=== PATIENT | female | born 1935 | race Caucasian/White ===

== ENCOUNTER 2020-01-17 16:09 | Inpatient (IN) ==
[2020-01-17 17:00] LABS: Basophils % 0.2 % (0.0-0.8); Eosinophils # 0.1 10*3/uL (0.0-0.87); Eosinophils % 1.1 % (0.00-10.9); Hematocrit 39.7 VOL% (35.7-47.0); Hemoglobin 13.3 GM/DL (12.0-16.0); Immature Granulocytes % 0.7 %; Immature Granulocytes Absolute 0.07 #; Lymphocytes % 10.1 % (21.3-54.2); Mean Corpuscular HGB Conc 33.5 GM/DL (32-36); Mean Corpuscular Volume 95.7 FL (87-102); Monocytes % 8.5 % (1.7-12.7); Neutrophils % 79.4 % (38.7-73.9); Platelet Count 230 T/CUMM (130-400); Red Blood Count 4.15 MC/CUMM (3.8-5.5); Red Cell Distribution Width 13.7 % (9.3-17.3)
[2020-01-17 17:15] LABS: INR 1.9; PT Patient Result 19.3 SECS (9.8-11.9)
[2020-01-17 17:26] LABS: Albumin 3.4 G/DL (3.4-5.0); Bilirubin,Total 0.9 MG/DL (0.2-1.0); Calcium 8.5 MG/DL (8.5-10.1); Osmolality,Calculated 280.5 MOS/KG (273-304); Total Protein 7.2 G/DL (6.4-8.3)
[2020-01-17 18:01] LABS: Bilirubin,Urine Negative (Negative); Blood, Urine Moderate mg/dL (Negative); Glucose,Urine (UA) Negative (Negative); Hyaline Casts,Urine 3 /LPF (0-3); Ketones,Urine Negative (Negative); Nitrite,Urine Negative (Negative); Protein,Urine Negative; RBC,Urine 1 /HPF (0-4); Urine Appearance CLEAR (Clear); Urine Color Straw (Yellow); Urine Specific Gravity 1.005 (1.001-1.035); Urine Urobilinogen < 2.0 EU/DL (0.2-1.0); WBC,Urine 1 /HPF (0-6)
[2020-01-17] MEDS ORDERED: DOCUSATE SODIUM 100 MG CAPSULE PO PRN (18:07)
[2020-01-17] MEDS ORDERED: MORPHINE 4 MG/1 ML VIAL IV PRN (18:07)
[2020-01-17] MEDS ORDERED: hydrALAZINE 20 MG/1 ML VIAL IV PRN (18:07)
[2020-01-17] MEDS ORDERED: ONDANSETRON 4 MG/2 ML VIAL IV PRN (18:07)
[2020-01-17] MEDS ORDERED: LABETALOL 20 MG/4 ML SYRINGE IV PRN (18:07)
[2020-01-17] MEDS ORDERED: ALBUTEROL/IPRATROPIUM 3 ML NEB RESP TX PRN (18:07)
[2020-01-17] MEDS ORDERED: LACTULOSE 20 GM/30 ML UDCUP PO PRN (18:07)
[2020-01-17 20:04] LABS: Barbiturates Screen,Urine Negative (Negative); Benzodiazepines Screen,Urine Negative (Negative); Cannabinoid Screen,Urine Negative (Negative); Opiate Screen,Urine Negative (Negative); Phencyclidine Screen,Urine Negative (Negative)
[2020-01-17] MEDS: SODIUM CHLORIDE 0.9% 1,000 ML IV SCH (22:53)
[2020-01-18 05:31] LABS: Basophils % 0.2 % (0.0-0.8); Eosinophils # 0.2 10*3/uL (0.0-0.87); Eosinophils % 1.7 % (0.00-10.9); Hematocrit 39.8 VOL% (35.7-47.0); Hemoglobin 13.1 GM/DL (12.0-16.0); Immature Granulocytes % 0.3 %; Immature Granulocytes Absolute 0.03 #; Lymphocytes # 1.7 10*3/uL (1.4-4.0); Lymphocytes % 19.3 % (21.3-54.2); Mean Corpuscular HGB Conc 32.9 GM/DL (32-36); Mean Corpuscular Volume 95.9 FL (87-102); Mean Platelet Volume 10.5 FL (9.6-12.0); Neutrophils % 68.5 % (38.7-73.9); Platelet Count 219 T/CUMM (130-400); Red Blood Count 4.15 MC/CUMM (3.8-5.5); Red Cell Distribution Width 13.6 % (9.3-17.3); White Blood Count 8.8 T/CUMM (4-12)
[2020-01-18 05:58] LABS: Bilirubin,Total 0.6 MG/DL (0.2-1.0); Calcium 8.5 MG/DL (8.5-10.1); Osmolality,Calculated 283.3 MOS/KG (273-304); Thyroid Stimulating Hormone 1.66 uIU/ml (0.358-3.74); Total Protein 7.1 G/DL (6.4-8.3)
[2020-01-18 08:53] LABS: Risk Ratio 2.91
[2020-01-18] MEDS: ASPIRIN 325 MG TABLET PO SCH (09:43)
[2020-01-18] MEDS: ENOXAPARIN 40 MG/0.4 ML SYRINGE SUBCUT SCH (09:43)
[2020-01-18 09:51] LABS: INR 1.7; PT Patient Result 17.9 SECS (9.8-11.9)
[2020-01-18 10:33] LABS: Folate 18.7 NG/ML (5.4-24.0)
[2020-01-18] MEDS ORDERED: WARFARIN 5 MG TABLET PO ONE (18:00)
[2020-01-18] MEDS: atenoloL 50 MG TABLET PO SCH (19:37)
[2020-01-18] MEDS ORDERED: ATORVASTATIN 40 MG TABLET PO SCH (21:00)
[2020-01-18] MEDS: TORSEMIDE 20 MG TABLET PO SCH (23:37)
[2020-01-19] MEDS: ACETAMINOPHEN 325 MG TABLET PO PRN ×2 (03:08→09:24)
[2020-01-19 06:12] LABS: Basophils % 0.3 % (0.0-0.8); Eosinophils % 0.2 % (0.00-10.9); Hematocrit 37.1 VOL% (35.7-47.0); Hemoglobin 12.4 GM/DL (12.0-16.0); Immature Granulocytes % 0.5 %; Immature Granulocytes Absolute 0.06 #; Lymphocytes # 1.4 10*3/uL (1.4-4.0); Lymphocytes % 11.8 % (21.3-54.2); Mean Corpuscular HGB Conc 33.4 GM/DL (32-36); Mean Corpuscular Volume 94.9 FL (87-102); Mean Platelet Volume 10.6 FL (9.6-12.0); Monocytes % 9.8 % (1.7-12.7); Neutrophils % 77.4 % (38.7-73.9); Platelet Count 221 T/CUMM (130-400); Red Blood Count 3.91 MC/CUMM (3.8-5.5); Red Cell Distribution Width 13.8 % (9.3-17.3)
[2020-01-19 06:39] LABS: Albumin 2.9 G/DL (3.4-5.0); Bilirubin,Total 1.3 MG/DL (0.2-1.0); Calcium 8.7 MG/DL (8.5-10.1); Osmolality,Calculated 279.5 MOS/KG (273-304)
[2020-01-19] MEDS ORDERED: POTASSIUM CHLORIDE 20 MEQ TABLET PO PRN (07:39)
[2020-01-19] MEDS ORDERED: POTASSIUM CHLORIDE RIDER 10 MEQ in PREMIX 1 EACH IV PRN (07:39)
[2020-01-19 08:32] LABS: INR 1.8; PT Patient Result 18.9 SECS (9.8-11.9)
[2020-01-19] MEDS: TORSEMIDE 20 MG TABLET PO SCH (09:24)
[2020-01-19] MEDS: ASPIRIN 325 MG TABLET PO SCH (09:25)
[2020-01-19] MEDS: atenoloL 50 MG TABLET PO SCH (09:25)
[2020-01-19] MEDS: ENOXAPARIN 40 MG/0.4 ML SYRINGE SUBCUT SCH (09:26)
[2020-01-19] MEDS: SODIUM CHLORIDE 0.9% 1,000 ML IV SCH ×3 (09:28→14:35)
[2020-01-19 12:18] VITALS: BP 131/86
[2020-01-19] MEDS ORDERED: WARFARIN 5 MG TABLET PO SCH (18:00)
[2020-01-23] MEDS ORDERED: WARFARIN 5 MG TABLET PO SCH (18:00)
== END 2020-01-19 15:31 | DRG 65 ==
LOC: EDUNIT# → EDBD → N.ED 16:09 → N.EDINP 18:07
PROVIDERS: ADMIT Internal Medicine; ATTEND Internal Medicine

== ENCOUNTER 2021-10-05 22:57 | Inpatient (IN) ==
[2021-10-05] MEDS ORDERED: SODIUM CHLORIDE 0.9% 500 ML IV STA (23:20)
[2021-10-06 00:41] LABS: Hyaline Casts,Urine 96 /LPF (0-3); Mucus,Urine Occasional /LPF (Occasional); RBC,Urine 4 /HPF (0-4)
[2021-10-06 00:42] LABS: Urine Appearance Clear (Clear); Urine Color Yellow (Yellow); Urine pH 5.5 (4.5-8.0)
[2021-10-06 00:42] LABS: Basophils % 0.1 % (0.0-0.8); Eosinophils % 0.3 % (0.00-10.9); Hematocrit 41.2 VOL% (35.7-47.0); Hemoglobin 13.3 GM/DL (12.0-16.0); Immature Granulocytes % 0.7 %; Lymphocytes # 1.3 10*3/uL (1.4-4.0); Lymphocytes % 9.1 % (21.3-54.2); Mean Corpuscular HGB Conc 32.3 GM/DL (32-36); Mean Corpuscular Volume 95.6 FL (87-102); Mean Platelet Volume 10.6 FL (9.6-12.0); Monocytes % 6.8 % (1.7-12.7); Platelet Count 240 T/CUMM (130-400); Red Blood Count 4.31 MC/CUMM (3.8-5.5); Red Cell Distribution Width 14.8 % (9.3-17.3); White Blood Count 14.6 T/CUMM (4-12)
[2021-10-06 00:43] LABS: Bilirubin,Urine Negative (Negative); Blood, Urine Trace mg/dL (Negative); Glucose,Urine (UA) Negative (Negative); Ketones,Urine Negative (Negative); Nitrite,Urine Negative (Negative); Protein,Urine Negative (Negative); Urine Urobilinogen 0.2 eU/dL (<2.0)
[2021-10-06 00:50] LABS: Albumin 3.4 G/DL (3.4-5.0); Bilirubin,Total 0.5 MG/DL (0.20-1.00); Potassium 4.2 MMOL/L (3.5-5.1); Total Protein 7.5 G/DL (6.4-8.2)
[2021-10-06] MEDS ORDERED: cefTRIAXone 1,000 MG in SODIUM CHLORIDE 0.9% 100 ML IV STA (01:18)
[2021-10-06] MEDS ORDERED: DEXTROSE 50% 25 GM/50 ML VIAL IV PRN (02:32)
[2021-10-06] MEDS ORDERED: DEXTROSE 10% 250 ML BAG IV PRN (02:32)
[2021-10-06] MEDS ORDERED: GLUCAGON 1 MG VIAL IM PRN (02:32)
[2021-10-06] MEDS: AZITHROMYCIN INJ 500 MG in SODIUM CHLORIDE 0.9% 250 ML IV SCH (02:53)
[2021-10-06 03:05] LABS: INR 1.9; PT Patient Result 20.3 SECS (10.5-12.0)
[2021-10-06] MEDS ORDERED: ALBUTEROL/IPRATROPIUM 3 ML NEB RESP TX PRN (03:46)
[2021-10-06] MEDS: INSULIN REGULAR 100 UNIT/ML SUBCUT SCH ×4 (07:54→21:53)
[2021-10-06 08:01] LABS: INR 1.9; PT Patient Result 20.3 SECS (10.5-12.0)
[2021-10-06 08:10] LABS: Albumin 3.2 G/DL (3.4-5.0); Bilirubin,Total 0.6 MG/DL (0.20-1.00); Calcium 8.6 MG/DL (8.5-10.1); Osmolality,Calculated 277.7 MOS/KG (273-304); Potassium 4.1 MMOL/L (3.5-5.1); Total Protein 7.5 G/DL (6.4-8.2)
[2021-10-06 08:23] LABS: Basophils % 0.1 % (0.0-0.8); Eosinophils # 0.1 10*3/uL (0.0-0.87); Eosinophils % 0.7 % (0.00-10.9); Hematocrit 37.1 VOL% (35.7-47.0); Hemoglobin 12.3 GM/DL (12.0-16.0); Immature Granulocytes % 0.6 %; Immature Granulocytes Absolute 0.08 #; Lymphocytes # 1.6 10*3/uL (1.4-4.0); Lymphocytes % 11.7 % (21.3-54.2); Mean Corpuscular HGB Conc 33.2 GM/DL (32-36); Mean Corpuscular Volume 95.4 FL (87-102); Mean Platelet Volume 11.3 FL (9.6-12.0); Monocytes # 1.1 10*3/uL (0.11-0.8); Monocytes % 7.9 % (1.7-12.7); Platelet Count 233 T/CUMM (130-400); Red Blood Count 3.89 MC/CUMM (3.8-5.5); White Blood Count 13.5 T/CUMM (4-12)
[2021-10-06] MEDS: PANTOPRAZOLE 40 MG TABLET PO SCH (08:45)
[2021-10-06] MEDS ORDERED: FLUTICASONE 50 MCG NASAL SPRAY 16 GM BOTTLE BOTH NARES PRN (10:03)
[2021-10-06] MEDS ORDERED: CETIRIZINE 10 MG TABLET PO PRN (10:13)
[2021-10-06] MEDS: ASPIRIN EC 325 MG TABLET PO SCH (10:38)
[2021-10-06] MEDS: WARFARIN 5 MG TABLET PO SCH (10:38)
[2021-10-06] MEDS: atenoloL 25 MG TABLET PO SCH ×2 (10:38→20:32)
[2021-10-06] MEDS: DIGOXIN 0.125 MG TABLET PO SCH (10:40)
[2021-10-06] MEDS ORDERED: FUROSEMIDE 40 MG/4 ML VIAL IV ONE (16:31)
[2021-10-06] MEDS: SIMVASTATIN 10 MG TABLET PO SCH (20:32)
[2021-10-06] MEDS: ZINC OXIDE PASTE 113 GM TUBE TOP SCH (20:40)
[2021-10-06] MEDS: ACETAMINOPHEN 325 MG TABLET PO PRN (22:00)
[2021-10-07 05:25] LABS: Basophils % 0.1 % (0.0-0.8); Eosinophils # 0.1 10*3/uL (0.0-0.87); Eosinophils % 0.7 % (0.00-10.9); Hematocrit 35.7 VOL% (35.7-47.0); Hemoglobin 11.5 GM/DL (12.0-16.0); Immature Granulocytes % 0.4 %; Immature Granulocytes Absolute 0.06 #; Lymphocytes # 1.7 10*3/uL (1.4-4.0); Lymphocytes % 12.2 % (21.3-54.2); Mean Corpuscular HGB Conc 32.2 GM/DL (32-36); Mean Corpuscular Volume 95.7 FL (87-102); Mean Platelet Volume 11.5 FL (9.6-12.0); Monocytes # 1.5 10*3/uL (0.11-0.8); Monocytes % 11.1 % (1.7-12.7); Neutrophils % 75.5 % (38.7-73.9); Platelet Count 161 T/CUMM (130-400); Red Blood Count 3.73 MC/CUMM (3.8-5.5); Red Cell Distribution Width 14.8 % (9.3-17.3); White Blood Count 13.6 T/CUMM (4-12)
[2021-10-07 05:38] LABS: Calcium 8.5 MG/DL (8.5-10.1)
[2021-10-07 08:09] LABS: INR 1.9; PT Patient Result 20.3 SECS (10.5-12.0)
[2021-10-07] MEDS: INSULIN REGULAR 100 UNIT/ML SUBCUT SCH ×5 (08:44→21:45)
[2021-10-07] MEDS: ACETAMINOPHEN 325 MG TABLET PO PRN ×2 (09:27→21:46)
[2021-10-07] MEDS: ASPIRIN EC 325 MG TABLET PO SCH (09:28)
[2021-10-07] MEDS: PANTOPRAZOLE 40 MG TABLET PO SCH (09:28)
[2021-10-07] MEDS: atenoloL 25 MG TABLET PO SCH ×2 (09:28→21:42)
[2021-10-07] MEDS: DIGOXIN 0.125 MG TABLET PO SCH (09:28)
[2021-10-07] MEDS: cefTRIAXone 1,000 MG in SODIUM CHLORIDE 0.9% 100 ML IV SCH (09:28)
[2021-10-07] MEDS: WARFARIN 2.5 MG TABLET PO SCH (09:32)
[2021-10-07] MEDS: ZINC OXIDE PASTE 113 GM TUBE TOP SCH ×2 (09:33→21:43)
[2021-10-07] MEDS ORDERED: FUROSEMIDE 40 MG/4 ML VIAL IV ONE (11:00)
[2021-10-07] MEDS: AZITHROMYCIN INJ 500 MG in SODIUM CHLORIDE 0.9% 250 ML IV SCH (11:01)
[2021-10-07] MEDS: SIMVASTATIN 10 MG TABLET PO SCH (21:42)
[2021-10-08 05:04] LABS: Basophils % 0.1 % (0.0-0.8); Eosinophils # 0.2 10*3/uL (0.0-0.87); Eosinophils % 1.2 % (0.00-10.9); Hematocrit 35.3 VOL% (35.7-47.0); Hemoglobin 11.4 GM/DL (12.0-16.0); Immature Granulocytes % 0.5 %; Immature Granulocytes Absolute 0.08 #; Lymphocytes # 1.2 10*3/uL (1.4-4.0); Lymphocytes % 8.2 % (21.3-54.2); Mean Corpuscular HGB Conc 32.3 GM/DL (32-36); Mean Corpuscular Volume 95.7 FL (87-102); Mean Platelet Volume 11.2 FL (9.6-12.0); Monocytes # 1.3 10*3/uL (0.11-0.8); Monocytes % 8.4 % (1.7-12.7); Neutrophils % 81.6 % (38.7-73.9); Platelet Count 177 T/CUMM (130-400); Red Blood Count 3.69 MC/CUMM (3.8-5.5); Red Cell Distribution Width 14.6 % (9.3-17.3)
[2021-10-08 05:14] LABS: INR 2.1; PT Patient Result 21.9 SECS (10.5-12.0)
[2021-10-08 05:24] LABS: Calcium 8.4 MG/DL (8.5-10.1); Osmolality,Calculated 276.7 MOS/KG (273-304); Potassium 3.7 MMOL/L (3.5-5.1)
[2021-10-08] MEDS: INSULIN REGULAR 100 UNIT/ML SUBCUT SCH (07:49)
[2021-10-08] MEDS: ASPIRIN EC 325 MG TABLET PO SCH (08:56)
[2021-10-08] MEDS: WARFARIN 5 MG TABLET PO SCH (08:57)
[2021-10-08] MEDS: PANTOPRAZOLE 40 MG TABLET PO SCH (08:57)
[2021-10-08] MEDS: AZITHROMYCIN 250 MG TABLET PO SCH (08:57)
[2021-10-08] MEDS: TORSEMIDE 20 MG TABLET PO SCH ×2 (08:57→15:59)
[2021-10-08] MEDS: DIGOXIN 0.125 MG TABLET PO SCH (08:57)
[2021-10-08] MEDS: atenoloL 25 MG TABLET PO SCH ×2 (08:57→21:44)
[2021-10-08] MEDS: cefTRIAXone 1,000 MG in SODIUM CHLORIDE 0.9% 100 ML IV SCH (08:58)
[2021-10-08] MEDS: ALBUTEROL/IPRATROPIUM 3 ML NEB RESP TX SCH ×4 (10:00→20:45)
[2021-10-08] MEDS: ZINC OXIDE PASTE 113 GM TUBE TOP SCH ×2 (10:15→22:41)
[2021-10-08] MEDS: SIMVASTATIN 10 MG TABLET PO SCH (21:44)
[2021-10-09] MEDS: ALBUTEROL/IPRATROPIUM 3 ML NEB RESP TX SCH ×2 (01:06→04:00)
[2021-10-09 06:12] LABS: Basophils % 0.2 % (0.0-0.8); Eosinophils # 0.2 10*3/uL (0.0-0.87); Eosinophils % 1.6 % (0.00-10.9); Hematocrit 36.4 VOL% (35.7-47.0); Hemoglobin 11.7 GM/DL (12.0-16.0); Immature Granulocytes % 0.5 %; Immature Granulocytes Absolute 0.05 #; Lymphocytes # 1.5 10*3/uL (1.4-4.0); Lymphocytes % 13.5 % (21.3-54.2); Mean Corpuscular HGB Conc 32.1 GM/DL (32-36); Mean Platelet Volume 10.8 FL (9.6-12.0); Monocytes # 0.8 10*3/uL (0.11-0.8); Monocytes % 6.8 % (1.7-12.7); Neutrophils % 77.4 % (38.7-73.9); Platelet Count 215 T/CUMM (130-400); Red Blood Count 3.83 MC/CUMM (3.8-5.5); Red Cell Distribution Width 14.6 % (9.3-17.3); White Blood Count 11.1 T/CUMM (4-12)
[2021-10-09 06:21] LABS: INR 2.2; PT Patient Result 23.3 SECS (10.5-12.0)
[2021-10-09 06:35] LABS: Calcium 8.4 MG/DL (8.5-10.1)
[2021-10-09] MEDS: ASPIRIN EC 325 MG TABLET PO SCH (09:15)
[2021-10-09] MEDS: AZITHROMYCIN 250 MG TABLET PO SCH (09:16)
[2021-10-09] MEDS: atenoloL 25 MG TABLET PO SCH (09:16)
[2021-10-09] MEDS: TORSEMIDE 20 MG TABLET PO SCH (09:16)
[2021-10-09] MEDS: WARFARIN 2.5 MG TABLET PO SCH (09:16)
[2021-10-09] MEDS: DIGOXIN 0.125 MG TABLET PO SCH (09:17)
[2021-10-09] MEDS: ZINC OXIDE PASTE 113 GM TUBE TOP SCH (09:17)
[2021-10-09] MEDS: PANTOPRAZOLE 40 MG TABLET PO SCH (09:17)
[2021-10-09 12:26] VITALS: BP 121/53
[2021-10-09] MEDS: cefTRIAXone 1,000 MG in SODIUM CHLORIDE 0.9% 100 ML IV SCH (12:40)
== END 2021-10-09 13:36 | disposition home health service (06) | DRG 193 ==
LOC: EDUNIT# → EDBD → N.ED 22:57 → N.EDINP 10-06 02:32 → N.5E 10-06 02:57
PROVIDERS: ADMIT Internal Medicine; ATTEND Internal Medicine

== ENCOUNTER 2021-12-18 19:47 | Observation (INO) ==
[2021-12-18 20:25] LABS: Basophils % 0.2 % (0.0-0.8); Eosinophils # 0.2 10*3/uL (0.0-0.87); Eosinophils % 1.8 % (0.00-10.9); Hematocrit 39.5 VOL% (35.7-47.0); Hemoglobin 12.7 GM/DL (12.0-16.0); Immature Granulocytes % 0.5 %; Immature Granulocytes Absolute 0.07 #; Lymphocytes # 2.2 10*3/uL (1.4-4.0); Lymphocytes % 17.5 % (21.3-54.2); Mean Corpuscular HGB Conc 32.2 GM/DL (32-36); Mean Corpuscular Volume 95.2 FL (87-102); Mean Platelet Volume 10.2 FL (9.6-12.0); Monocytes # 0.9 10*3/uL (0.11-0.8); Monocytes % 6.7 % (1.7-12.7); Neutrophils % 73.3 % (38.7-73.9); Platelet Count 276 T/CUMM (130-400); Red Blood Count 4.15 MC/CUMM (3.8-5.5); Red Cell Distribution Width 14.8 % (9.3-17.3); White Blood Count 12.7 T/CUMM (4-12)
[2021-12-18 20:44] LABS: Amorphous Crystals,Urine Occasional /HPF (Few); Bacteria,Urine Occasional /HPF (Few); RBC,Urine 1 /HPF (0-4); Squamous Epithelial Cell,Urine Occasional /HPF (0-10)
[2021-12-18 20:44] LABS: Albumin 3.3 G/DL (3.4-5.0); Bilirubin,Total 0.4 MG/DL (0.20-1.00); Calcium 8.8 MG/DL (8.5-10.1); Osmolality,Calculated 268.4 MOS/KG (273-304); Potassium 4.3 MMOL/L (3.5-5.1); Total Protein 7.5 G/DL (6.4-8.2)
[2021-12-18 20:45] LABS: Bilirubin,Urine Negative (Negative); Blood, Urine Large mg/dL (Negative); Glucose,Urine (UA) Negative (Negative); Ketones,Urine Negative (Negative); Nitrite,Urine Negative (Negative); Protein,Urine 30 mg/dL (Negative); Urine Appearance Clear (Clear); Urine Color Yellow (Yellow); Urine Urobilinogen 0.2 eU/dL (<2.0); Urine pH 6.5 (4.5-8.0)
[2021-12-18 20:45] LABS: PT Patient Result 20.8 SECS (10.1-12.1)
[2021-12-18] MEDS ORDERED: cefTRIAXone 1,000 MG in SODIUM CHLORIDE 0.9% 100 ML IV STA (20:57)
[2021-12-18] MEDS ORDERED: hydrALAZINE 20 MG/1 ML VIAL IV PRN (22:06)
[2021-12-18] MEDS ORDERED: ACETAMINOPHEN 325 MG TABLET PO PRN (22:06)
[2021-12-18] MEDS ORDERED: DEXTROSE 10% 250 ML BAG IV PRN (22:06)
[2021-12-18] MEDS ORDERED: ONDANSETRON 4 MG/2 ML VIAL IV PRN (22:06)
[2021-12-18] MEDS ORDERED: GLUCAGON 1 MG VIAL IM PRN (22:06)
[2021-12-18] MEDS ORDERED: ZINC OXIDE PASTE 113 GM TUBE TOP PRN (22:11)
[2021-12-18] MEDS ORDERED: traMADol 50 MG TABLET PO PRN (22:11)
[2021-12-18] MEDS ORDERED: FLUTICASONE 50 MCG NASAL SPRAY 16 GM BOTTLE BOTH NARES PRN (22:11)
[2021-12-18] MEDS ORDERED: CETIRIZINE 10 MG TABLET PO PRN (22:37)
[2021-12-19 06:26] LABS: INR 1.8; PT Patient Result 19.4 SECS (10.1-12.1)
[2021-12-19 06:33] LABS: Calcium 8.9 MG/DL (8.5-10.1); Osmolality,Calculated 282.3 MOS/KG (273-304); Potassium 3.8 MMOL/L (3.5-5.1)
[2021-12-19 07:08] LABS: Basophils % 0.2 % (0.0-0.8); Eosinophils # 0.2 10*3/uL (0.0-0.87); Eosinophils % 2.6 % (0.00-10.9); Hematocrit 37.9 VOL% (35.7-47.0); Hemoglobin 12.3 GM/DL (12.0-16.0); Immature Granulocytes % 0.3 %; Immature Granulocytes Absolute 0.03 #; Lymphocytes # 2.1 10*3/uL (1.4-4.0); Lymphocytes % 23.4 % (21.3-54.2); Mean Corpuscular HGB Conc 32.5 GM/DL (32-36); Mean Corpuscular Volume 95.5 FL (87-102); Monocytes # 0.7 10*3/uL (0.11-0.8); Monocytes % 7.7 % (1.7-12.7); Neutrophils % 65.8 % (38.7-73.9); Platelet Count 222 T/CUMM (130-400); Red Blood Count 3.97 MC/CUMM (3.8-5.5); Red Cell Distribution Width 14.7 % (9.3-17.3); White Blood Count 8.9 T/CUMM (4-12)
[2021-12-19] MEDS: TORSEMIDE 20 MG TABLET PO SCH ×2 (09:17→21:07)
[2021-12-19] MEDS: PANTOPRAZOLE 40 MG TABLET PO SCH (09:17)
[2021-12-19] MEDS: DIGOXIN 0.125 MG TABLET PO SCH (09:17)
[2021-12-19] MEDS: ASPIRIN EC 325 MG TABLET PO SCH (09:17)
[2021-12-19] MEDS: BISACODYL 5 MG TABLET PO SCH (09:18)
[2021-12-19] MEDS ORDERED: WARFARIN 5 MG TABLET PO SCH (18:00)
[2021-12-19] MEDS ORDERED: cefTRIAXone 1,000 MG in SODIUM CHLORIDE 0.9% 100 ML IV SCH (21:00)
[2021-12-19] MEDS ORDERED: SIMVASTATIN 10 MG TABLET PO SCH (21:00)
[2021-12-19] MEDS: DESITIN 4OZ/NYSTATIN 15 GRAM MIXTURE PASTE TOP SCH (21:13)
[2021-12-19] MEDS: atenoloL 50 MG TABLET PO SCH (23:05)
[2021-12-20 06:09] LABS: Basophils % 0.2 % (0.0-0.8); Eosinophils # 0.2 10*3/uL (0.0-0.87); Eosinophils % 2.3 % (0.00-10.9); Hematocrit 40.5 VOL% (35.7-47.0); Hemoglobin 12.7 GM/DL (12.0-16.0); Immature Granulocytes % 0.3 %; Immature Granulocytes Absolute 0.03 #; Lymphocytes # 1.8 10*3/uL (1.4-4.0); Mean Corpuscular HGB Conc 31.4 GM/DL (32-36); Mean Corpuscular Volume 96.9 FL (87-102); Monocytes # 0.8 10*3/uL (0.11-0.8); Monocytes % 8.3 % (1.7-12.7); Neutrophils % 69.9 % (38.7-73.9); Platelet Count 183 T/CUMM (130-400); Red Blood Count 4.18 MC/CUMM (3.8-5.5); Red Cell Distribution Width 14.9 % (9.3-17.3); White Blood Count 9.3 T/CUMM (4-12)
[2021-12-20 06:51] LABS: Calcium 8.5 MG/DL (8.5-10.1); Osmolality,Calculated 279.4 MOS/KG (273-304); Potassium 3.6 MMOL/L (3.5-5.1)
[2021-12-20 07:21] LABS: INR 1.8; PT Patient Result 19.1 SECS (10.1-12.1)
[2021-12-20 08:03] LABS: Platelet Estimate Normal
[2021-12-20] MEDS: ASPIRIN EC 325 MG TABLET PO SCH (08:56)
[2021-12-20] MEDS: DIGOXIN 0.125 MG TABLET PO SCH (08:56)
[2021-12-20] MEDS: atenoloL 50 MG TABLET PO SCH (08:56)
[2021-12-20] MEDS: PANTOPRAZOLE 40 MG TABLET PO SCH (08:56)
[2021-12-20] MEDS: TORSEMIDE 20 MG TABLET PO SCH (08:57)
[2021-12-20] MEDS: BISACODYL 5 MG TABLET PO SCH (08:57)
[2021-12-20] MEDS: DESITIN 4OZ/NYSTATIN 15 GRAM MIXTURE PASTE TOP SCH (08:58)
[2021-12-20 09:42] LABS: Partial Thromboplastin Time 34.8 SECS (23.7-32.9)
[2021-12-20 09:46] VITALS: BP 151/92
[2021-12-20] MEDS ORDERED: WARFARIN 2.5 MG TABLET PO SCH (18:00)
== END 2021-12-20 12:43 | disposition home health service (06) ==
LOC: EDBD → EDUNIT# → N.EDINP 19:47 → N.ED 19:47 → SUATTDRO 22:06 → N.5E 23:33
PROVIDERS: ADMIT Hospitalist; ATTEND Internal Medicine

== ENCOUNTER 2022-01-11 15:47 | Inpatient (IN) ==
[2022-01-11] MEDS ORDERED: SODIUM CHLORIDE 0.9% 1,000 ML IV STA (16:18)
[2022-01-11 16:43] LABS: Basophils % 0.3 % (0.0-0.8); Eosinophils # 0.2 10*3/uL (0.0-0.87); Eosinophils % 2.3 % (0.00-10.9); Hemoglobin 13.2 GM/DL (12.0-16.0); Immature Granulocytes % 0.6 %; Immature Granulocytes Absolute 0.06 #; Lymphocytes # 2.1 10*3/uL (1.4-4.0); Lymphocytes % 19.5 % (21.3-54.2); Mean Corpuscular HGB Conc 32.2 GM/DL (32-36); Mean Platelet Volume 10.1 FL (9.6-12.0); Monocytes # 0.9 10*3/uL (0.11-0.8); Monocytes % 8.4 % (1.7-12.7); Neutrophils % 68.9 % (38.7-73.9); Platelet Count 238 T/CUMM (130-400); Red Blood Count 4.27 MC/CUMM (3.8-5.5); Red Cell Distribution Width 14.6 % (9.3-17.3); White Blood Count 10.7 T/CUMM (4-12)
[2022-01-11 17:05] LABS: Albumin 3.6 G/DL (3.4-5.0); Bilirubin,Total 0.4 MG/DL (0.20-1.00); Calcium 9.1 MG/DL (8.5-10.1); Osmolality,Calculated 274.8 MOS/KG (273-304); Potassium 4.1 MMOL/L (3.5-5.1); Total Protein 7.5 G/DL (6.4-8.2)
[2022-01-11 17:20] LABS: RBC,Urine 15-20 /HPF (0-4); Squamous Epithelial Cell,Urine Occasional /HPF (0-10)
[2022-01-11 17:24] LABS: Bilirubin,Urine Negative (Negative); Blood, Urine Large mg/dL (Negative); Glucose,Urine (UA) Negative (Negative); Ketones,Urine Negative (Negative); Nitrite,Urine Negative (Negative); Protein,Urine Negative (Negative); Urine Appearance Clear (Clear); Urine Color Yellow (Yellow); Urine Urobilinogen 0.2 eU/dL (<2.0); Urine pH 6.5 (4.5-8.0)
[2022-01-11] MEDS ORDERED: cefTRIAXone 1,000 MG in SODIUM CHLORIDE 0.9% 100 ML IV STA (18:30)
[2022-01-11] MEDS ORDERED: traMADol 50 MG TABLET PO PRN (20:28)
[2022-01-11] MEDS ORDERED: FLUTICASONE 50 MCG NASAL SPRAY 16 GM BOTTLE BOTH NARES PRN (20:28)
[2022-01-11] MEDS ORDERED: ZINC OXIDE PASTE 113 GM TUBE TOP PRN (20:28)
[2022-01-11] MEDS ORDERED: ONDANSETRON 4 MG/2 ML VIAL IV PRN (20:31)
[2022-01-11] MEDS ORDERED: GLUCAGON 1 MG VIAL IM PRN (20:31)
[2022-01-11] MEDS ORDERED: DEXTROSE 10% 250 ML BAG IV PRN (20:31)
[2022-01-11] MEDS ORDERED: DOCUSATE SODIUM 100 MG CAPSULE PO PRN (20:31)
[2022-01-11] MEDS: atenoloL 25 MG TABLET PO SCH (22:02)
[2022-01-11] MEDS: TORSEMIDE 20 MG TABLET PO SCH (22:03)
[2022-01-12 05:42] LABS: Basophils % 0.3 % (0.0-0.8); Eosinophils # 0.2 10*3/uL (0.0-0.87); Eosinophils % 1.5 % (0.00-10.9); Hematocrit 38.3 VOL% (35.7-47.0); Hemoglobin 12.3 GM/DL (12.0-16.0); Immature Granulocytes % 0.3 %; Immature Granulocytes Absolute 0.04 #; Lymphocytes # 1.7 10*3/uL (1.4-4.0); Lymphocytes % 14.8 % (21.3-54.2); Mean Corpuscular HGB Conc 32.1 GM/DL (32-36); Mean Corpuscular Volume 94.6 FL (87-102); Mean Platelet Volume 9.9 FL (9.6-12.0); Monocytes # 0.9 10*3/uL (0.11-0.8); Monocytes % 7.6 % (1.7-12.7); Neutrophils % 75.5 % (38.7-73.9); Platelet Count 227 T/CUMM (130-400); Red Blood Count 4.05 MC/CUMM (3.8-5.5); Red Cell Distribution Width 14.4 % (9.3-17.3); White Blood Count 11.6 T/CUMM (4-12)
[2022-01-12 05:49] LABS: INR 2.6; PT Patient Result 26.4 SECS (10.1-12.1)
[2022-01-12 06:09] LABS: Calcium 8.8 MG/DL (8.5-10.1); Osmolality,Calculated 278.4 MOS/KG (273-304); Potassium 3.7 MMOL/L (3.5-5.1)
[2022-01-12] MEDS: CHOLECALCIFEROL 1,000 UNIT TABLET PO SCH (09:21)
[2022-01-12] MEDS: atenoloL 25 MG TABLET PO SCH ×2 (09:21→21:32)
[2022-01-12] MEDS: ASCORBIC ACID 500 MG TABLET PO SCH (09:21)
[2022-01-12] MEDS: ASPIRIN EC 325 MG TABLET PO SCH (09:21)
[2022-01-12] MEDS: cefTRIAXone 1,000 MG in SODIUM CHLORIDE 0.9% 100 ML IV SCH (09:21)
[2022-01-12] MEDS: TORSEMIDE 20 MG TABLET PO SCH ×2 (09:21→21:32)
[2022-01-12] MEDS: DIGOXIN 0.125 MG TABLET PO SCH (09:21)
[2022-01-12] MEDS: WARFARIN 5 MG TABLET PO SCH ×2 (17:54→21:32)
[2022-01-12] MEDS: SIMVASTATIN 10 MG TABLET PO SCH (21:32)
[2022-01-13 05:39] LABS: INR 3.2; PT Patient Result 32.4 SECS (10.1-12.1)
[2022-01-13] MEDS: CHOLECALCIFEROL 1,000 UNIT TABLET PO SCH (08:59)
[2022-01-13] MEDS: ASPIRIN EC 325 MG TABLET PO SCH (08:59)
[2022-01-13] MEDS: TORSEMIDE 20 MG TABLET PO SCH ×2 (08:59→20:34)
[2022-01-13] MEDS: ASCORBIC ACID 500 MG TABLET PO SCH (08:59)
[2022-01-13] MEDS: atenoloL 25 MG TABLET PO SCH ×2 (08:59→20:34)
[2022-01-13] MEDS: DIGOXIN 0.125 MG TABLET PO SCH (08:59)
[2022-01-13] MEDS: ACETAMINOPHEN 325 MG TABLET PO PRN ×2 (09:02→13:26)
[2022-01-13] MEDS: cefTRIAXone 1,000 MG in SODIUM CHLORIDE 0.9% 100 ML IV SCH (09:03)
[2022-01-13] MEDS ORDERED: WARFARIN 2.5 MG TABLET PO SCH (18:00)
[2022-01-13] MEDS: METHENAMINE HIPPURATE 1 GM TABLET PO SCH (20:34)
[2022-01-13] MEDS: SIMVASTATIN 10 MG TABLET PO SCH (20:34)
[2022-01-14 05:58] LABS: INR 3.9; PT Patient Result 39.3 SECS (10.1-12.1)
[2022-01-14] MEDS: ASPIRIN EC 325 MG TABLET PO SCH (08:57)
[2022-01-14] MEDS: METHENAMINE HIPPURATE 1 GM TABLET PO SCH (08:57)
[2022-01-14] MEDS: atenoloL 25 MG TABLET PO SCH ×2 (08:58→22:32)
[2022-01-14] MEDS: CHOLECALCIFEROL 1,000 UNIT TABLET PO SCH (08:58)
[2022-01-14] MEDS: TORSEMIDE 20 MG TABLET PO SCH ×2 (08:58→22:31)
[2022-01-14] MEDS: ASCORBIC ACID 500 MG TABLET PO SCH (08:58)
[2022-01-14] MEDS: cefTRIAXone 1,000 MG in SODIUM CHLORIDE 0.9% 100 ML IV SCH (08:59)
[2022-01-14] MEDS: DIGOXIN 0.125 MG TABLET PO SCH (08:59)
[2022-01-14] MEDS: ACETAMINOPHEN 325 MG TABLET PO PRN ×2 (10:47→23:17)
[2022-01-14] MEDS: SIMVASTATIN 10 MG TABLET PO SCH (22:32)
[2022-01-15] MEDS: ALBUTEROL/IPRATROPIUM 3 ML NEB RESP TX SCH ×5 (00:08→19:30)
[2022-01-15] MEDS: AZITHROMYCIN INJ 500 MG in SODIUM CHLORIDE 0.9% 250 ML IV SCH (01:57)
[2022-01-15 06:00] LABS: Basophils % 0.2 % (0.0-0.8); Eosinophils # 0.1 10*3/uL (0.0-0.87); Eosinophils % 0.4 % (0.00-10.9); Hematocrit 39.9 VOL% (35.7-47.0); Hemoglobin 12.9 GM/DL (12.0-16.0); Immature Granulocytes % 0.5 %; Immature Granulocytes Absolute 0.06 #; Lymphocytes # 1.2 10*3/uL (1.4-4.0); Lymphocytes % 9.2 % (21.3-54.2); Mean Corpuscular HGB Conc 32.3 GM/DL (32-36); Mean Corpuscular Volume 96.8 FL (87-102); Mean Platelet Volume 10.8 FL (9.6-12.0); Monocytes # 1.1 10*3/uL (0.11-0.8); Monocytes % 8.1 % (1.7-12.7); Neutrophils % 81.6 % (38.7-73.9); Platelet Count 218 T/CUMM (130-400); Red Blood Count 4.12 MC/CUMM (3.8-5.5); Red Cell Distribution Width 14.6 % (9.3-17.3); White Blood Count 12.9 T/CUMM (4-12)
[2022-01-15 06:04] LABS: INR 2.6; PT Patient Result 26.8 SECS (10.1-12.1)
[2022-01-15 06:11] LABS: Calcium 9.1 MG/DL (8.5-10.1); Osmolality,Calculated 276.8 MOS/KG (273-304); Potassium 3.6 MMOL/L (3.5-5.1)
[2022-01-15] MEDS: cefTRIAXone 1,000 MG in SODIUM CHLORIDE 0.9% 100 ML IV SCH (09:33)
[2022-01-15] MEDS: NITROFURANTOIN MACROCRYSTALS 50 MG CAPSULE PO SCH (11:59)
[2022-01-15] MEDS: CHOLECALCIFEROL 1,000 UNIT TABLET PO SCH (11:59)
[2022-01-15] MEDS: ASCORBIC ACID 500 MG TABLET PO SCH (11:59)
[2022-01-15] MEDS: ASPIRIN EC 325 MG TABLET PO SCH (11:59)
[2022-01-15] MEDS: TORSEMIDE 20 MG TABLET PO SCH ×2 (12:00→20:30)
[2022-01-15] MEDS: atenoloL 25 MG TABLET PO SCH ×2 (12:01→20:21)
[2022-01-15] MEDS: DIGOXIN 0.125 MG TABLET PO SCH (12:01)
[2022-01-15 15:23] LABS: Bacteria,Urine Occasional /HPF (Few); Bilirubin,Urine Negative (Negative); Blood, Urine Trace mg/dL (Negative); Glucose,Urine (UA) Negative (Negative); Hyaline Casts,Urine 9 /LPF (0-3); Ketones,Urine Negative (Negative); Mucus,Urine Occasional /LPF (Occasional); Nitrite,Urine Negative (Negative); Protein,Urine Negative (Negative); RBC,Urine 2 /HPF (0-4); Urine Appearance Clear (Clear); Urine Color Yellow (Yellow); Urine Specific Gravity 1.015 (1.001-1.035); Urine Urobilinogen 0.2 eU/dL (<2.0); Urine pH 5.5 (4.5-8.0)
[2022-01-15] MEDS: SIMVASTATIN 10 MG TABLET PO SCH (20:20)
[2022-01-16] MEDS: ALBUTEROL/IPRATROPIUM 3 ML NEB RESP TX SCH ×5 (00:20→19:18)
[2022-01-16] MEDS: AZITHROMYCIN INJ 500 MG in SODIUM CHLORIDE 0.9% 250 ML IV SCH (01:27)
[2022-01-16 05:10] LABS: Basophils % 0.1 % (0.0-0.8); Eosinophils % 0.1 % (0.00-10.9); Hematocrit 36.4 VOL% (35.7-47.0); Hemoglobin 11.8 GM/DL (12.0-16.0); Immature Granulocytes % 0.7 %; Immature Granulocytes Absolute 0.09 #; Lymphocytes # 1.2 10*3/uL (1.4-4.0); Lymphocytes % 8.7 % (21.3-54.2); Mean Corpuscular HGB Conc 32.4 GM/DL (32-36); Mean Corpuscular Volume 94.8 FL (87-102); Mean Platelet Volume 10.2 FL (9.6-12.0); Monocytes # 1.1 10*3/uL (0.11-0.8); Monocytes % 8.4 % (1.7-12.7); Platelet Count 193 T/CUMM (130-400); Red Blood Count 3.84 MC/CUMM (3.8-5.5); Red Cell Distribution Width 14.6 % (9.3-17.3); White Blood Count 13.5 T/CUMM (4-12)
[2022-01-16 05:26] LABS: INR 2.6; PT Patient Result 27.3 SECS (10.1-12.1)
[2022-01-16 05:29] LABS: Calcium 8.6 MG/DL (8.5-10.1); Potassium 3.4 MMOL/L (3.5-5.1)
[2022-01-16] MEDS: NITROFURANTOIN MACROCRYSTALS 50 MG CAPSULE PO SCH (09:01)
[2022-01-16] MEDS: ASCORBIC ACID 500 MG TABLET PO SCH (09:02)
[2022-01-16] MEDS: ASPIRIN EC 325 MG TABLET PO SCH (09:02)
[2022-01-16] MEDS: DIGOXIN 0.125 MG TABLET PO SCH (09:02)
[2022-01-16] MEDS: atenoloL 25 MG TABLET PO SCH ×2 (09:03→21:27)
[2022-01-16] MEDS: CHOLECALCIFEROL 1,000 UNIT TABLET PO SCH (09:04)
[2022-01-16] MEDS: cefTRIAXone 1,000 MG in SODIUM CHLORIDE 0.9% 100 ML IV SCH (09:04)
[2022-01-16] MEDS: TORSEMIDE 20 MG TABLET PO SCH ×2 (09:04→21:27)
[2022-01-16] MEDS: SIMVASTATIN 10 MG TABLET PO SCH (21:27)
[2022-01-17] MEDS: ALBUTEROL/IPRATROPIUM 3 ML NEB RESP TX SCH
[2022-01-17] MEDS ORDERED: METOPROLOL TARTRATE 5 MG/5 ML VIAL IV ONE ×2 (00:36→12:45)
[2022-01-17] MEDS ORDERED: FUROSEMIDE 40 MG/4 ML VIAL IV ONE ×2 (00:44→23:30)
[2022-01-17 00:58] LABS: Arterial Base Excess iSTAT 1 MMOL/L (-2.5-2.5); Arterial O2 Saturation iSTAT 95 % (95-100); Arterial PCO2 iSTAT 40 MM HG (35-48); Arterial PO2 iSTAT 75 MM HG (80-95); Arterial Total CO2 iSTAT 27 MMO/L (23-27); Arterial pH iSTAT 7.418 (7.35-7.45)
[2022-01-17 01:06] VITALS: BP 134/84
[2022-01-17] MEDS ORDERED: DEXAMETHASONE 10 MG/1 ML VIAL IV ONE (01:20)
[2022-01-17] MEDS ORDERED: DILTIAZEM 25 MG/5 ML VIAL IV ONE ×3 (02:24→03:00)
[2022-01-17] MEDS ORDERED: DILTIAZEM INJ 100 MG in SODIUM CHLORIDE 0.9% 100 ML IV SCH (02:30)
[2022-01-17 02:44] LABS: Basophils % 0.2 % (0.0-0.8); Hematocrit 37.7 VOL% (35.7-47.0); Hemoglobin 12.2 GM/DL (12.0-16.0); Immature Granulocytes % 0.8 %; Immature Granulocytes Absolute 0.15 #; Lymphocytes # 0.5 10*3/uL (1.4-4.0); Lymphocytes % 2.3 % (21.3-54.2); Mean Corpuscular HGB Conc 32.4 GM/DL (32-36); Mean Corpuscular Volume 95.4 FL (87-102); Mean Platelet Volume 10.3 FL (9.6-12.0); Monocytes % 4.9 % (1.7-12.7); Neutrophils % 91.8 % (38.7-73.9); Platelet Count 221 T/CUMM (130-400); Red Blood Count 3.95 MC/CUMM (3.8-5.5); Red Cell Distribution Width 14.7 % (9.3-17.3); White Blood Count 19.8 T/CUMM (4-12)
[2022-01-17 02:49] LABS: Bilirubin,Urine Negative (Negative); Blood, Urine Trace mg/dL (Negative); Glucose,Urine (UA) Negative (Negative); Ketones,Urine Negative (Negative); Nitrite,Urine Negative (Negative); Protein,Urine 30 mg/dL (Negative); Urine Appearance Clear (Clear); Urine Color Yellow (Yellow); Urine Specific Gravity 1.025 (1.001-1.035); Urine Urobilinogen 0.2 eU/dL (<2.0)
[2022-01-17] MEDS: AZITHROMYCIN INJ 500 MG in SODIUM CHLORIDE 0.9% 250 ML IV SCH (02:50)
[2022-01-17 02:52] LABS: Bacteria,Urine Occasional /HPF (Few); Hyaline Casts,Urine 25 /LPF (0-3); Mucus,Urine Occasional /LPF (Occasional); RBC,Urine 5 /HPF (0-4); Squamous Epithelial Cell,Urine Occasional /HPF (0-10)
[2022-01-17 02:53] LABS: INR 2.7; PT Patient Result 28.2 SECS (10.1-12.1)
[2022-01-17] MEDS: DILTIAZEM INJ 100 MG in SODIUM CHLORIDE 0.9% 100 ML IV SCH (03:02)
[2022-01-17] MEDS ORDERED: LEVALBUTEROL 1.25 MG/3 ML NEB RESP TX ONE (03:04)
[2022-01-17] MEDS: LEVALBUTEROL 1.25 MG/3 ML NEB RESP TX SCH ×4 (03:05→20:05)
[2022-01-17 03:07] LABS: Lymphocytes 1 % (20-55); Nucleated Red Blood Cells 1 /100 WBC (0-5); Total Cells Counted 100
[2022-01-17 03:08] LABS: Platelet Estimate Normal
[2022-01-17 03:26] LABS: Calcium 8.5 MG/DL (8.5-10.1); Osmolality,Calculated 285.7 MOS/KG (273-304); Potassium 3.7 MMOL/L (3.5-5.1)
[2022-01-17] MEDS: IPRATROPIUM 500 MCG/2.5 ML NEB RESP TX SCH ×3 (06:35→20:05)
[2022-01-17] MEDS ORDERED: BACILLUS COAGULANS CAPLET PO SCH (09:00)
[2022-01-17] MEDS: atenoloL 25 MG TABLET PO SCH ×3 (09:09→23:44)
[2022-01-17] MEDS: DIGOXIN 0.125 MG TABLET PO SCH (09:09)
[2022-01-17] MEDS: ASPIRIN EC 325 MG TABLET PO SCH (09:12)
[2022-01-17] MEDS: TORSEMIDE 20 MG TABLET PO SCH (09:12)
[2022-01-17] MEDS: NITROFURANTOIN MACROCRYSTALS 50 MG CAPSULE PO SCH (09:13)
[2022-01-17] MEDS: ASCORBIC ACID 500 MG TABLET PO SCH (09:13)
[2022-01-17] MEDS: CHOLECALCIFEROL 1,000 UNIT TABLET PO SCH (09:13)
[2022-01-17] MEDS ORDERED: POTASSIUM BICARB EFFERVESCENT 20 MEQ TAB.EFF PO ONE (09:23)
[2022-01-17] MEDS: ASPIRIN 325 MG TABLET PO SCH (09:25)
[2022-01-17] MEDS: cefTRIAXone 1,000 MG in SODIUM CHLORIDE 0.9% 100 ML IV SCH (09:29)
[2022-01-17] MEDS: SODIUM CHLORIDE 0.9% 1,000 ML IV SCH ×2 (09:29→20:28)
[2022-01-17] MEDS: PANTOPRAZOLE 40 MG VIAL IV SCH (09:39)
[2022-01-17] MEDS: methylPREDNISolone SOD SUC 40 MG/1 ML VIAL IV SCH ×2 (09:41→18:03)
[2022-01-17] MEDS: PIPERACILLIN/TAZOBACTAM 3,375 MG in SODIUM CHLORIDE 0.9% 100 ML IV SCH ×2 (10:12→18:07)
[2022-01-17] MEDS: LINEZOLID INJ 600 MG/300 ML PREMIX IV SCH ×2 (10:14→21:25)
[2022-01-17] MEDS: INSULIN REGULAR 100 UNIT/ML SUBCUT SCH ×2 (18:03→23:43)
[2022-01-17] MEDS: SIMVASTATIN 10 MG TABLET PO SCH (21:25)
[2022-01-18] MEDS: LEVALBUTEROL 1.25 MG/3 ML NEB RESP TX SCH ×4 (01:49→19:00)
[2022-01-18] MEDS: IPRATROPIUM 500 MCG/2.5 ML NEB RESP TX SCH ×4 (01:49→19:00)
[2022-01-18] MEDS: AZITHROMYCIN INJ 500 MG in SODIUM CHLORIDE 0.9% 250 ML IV SCH (01:58)
[2022-01-18] MEDS: methylPREDNISolone SOD SUC 40 MG/1 ML VIAL IV SCH ×3 (01:58→18:01)
[2022-01-18] MEDS: DILTIAZEM INJ 100 MG in SODIUM CHLORIDE 0.9% 100 ML IV SCH ×2 (02:13→15:02)
[2022-01-18] MEDS: PIPERACILLIN/TAZOBACTAM 3,375 MG in SODIUM CHLORIDE 0.9% 100 ML IV SCH ×3 (02:20→18:03)
[2022-01-18 05:23] LABS: Basophils % 0.1 % (0.0-0.8); Hematocrit 38.7 VOL% (35.7-47.0); Hemoglobin 12.1 GM/DL (12.0-16.0); Immature Granulocytes % 0.5 %; Immature Granulocytes Absolute 0.09 #; Lymphocytes # 0.8 10*3/uL (1.4-4.0); Lymphocytes % 4.6 % (21.3-54.2); Mean Corpuscular HGB Conc 31.3 GM/DL (32-36); Mean Corpuscular Volume 97.7 FL (87-102); Mean Platelet Volume 10.6 FL (9.6-12.0); Monocytes # 0.7 10*3/uL (0.11-0.8); Monocytes % 3.6 % (1.7-12.7); Neutrophils % 91.2 % (38.7-73.9); Platelet Count 217 T/CUMM (130-400); Red Blood Count 3.96 MC/CUMM (3.8-5.5); Red Cell Distribution Width 14.6 % (9.3-17.3)
[2022-01-18 05:32] LABS: INR 1.9; PT Patient Result 19.7 SECS (10.1-12.1)
[2022-01-18 05:46] LABS: Calcium 8.7 MG/DL (8.5-10.1); Osmolality,Calculated 289.4 MOS/KG (273-304); Potassium 3.6 MMOL/L (3.5-5.1)
[2022-01-18 05:50] LABS: Lymphocytes 5 % (20-55); Platelet Estimate Adequate; Total Cells Counted 100
[2022-01-18] MEDS: INSULIN REGULAR 100 UNIT/ML SUBCUT SCH ×3 (06:00→18:01)
[2022-01-18] MEDS: SODIUM CHLORIDE 0.9% 1,000 ML IV SCH (06:00)
[2022-01-18] MEDS ORDERED: FUROSEMIDE 40 MG/4 ML VIAL IV ONE (07:10)
[2022-01-18] MEDS ORDERED: methylPREDNISolone SOD SUC 125 MG/2 ML VIAL IV ONE (07:10)
[2022-01-18] MEDS ORDERED: HALOPERIDOL 5 MG/ML AMP IM ONE (08:34)
[2022-01-18] MEDS ORDERED: RACEPINEPHRINE 0.5 ML NEB RESP TX ONE (08:34)
[2022-01-18] MEDS ORDERED: POTASSIUM BICARB EFFERVESCENT 20 MEQ TAB.EFF PO ONE (09:13)
[2022-01-18] MEDS: atenoloL 50 MG TABLET PO SCH ×2 (09:18→20:57)
[2022-01-18] MEDS: ASPIRIN 325 MG TABLET PO SCH (09:18)
[2022-01-18] MEDS: DIGOXIN 0.125 MG TABLET PO SCH (09:18)
[2022-01-18] MEDS: PANTOPRAZOLE 40 MG VIAL IV SCH (09:19)
[2022-01-18] MEDS: LINEZOLID INJ 600 MG/300 ML PREMIX IV SCH ×2 (09:22→22:05)
[2022-01-18] MEDS: ENOXAPARIN 80 MG/0.8 ML SYRINGE SUBCUT SCH ×2 (09:22→20:57)
[2022-01-18] MEDS ORDERED: HALOPERIDOL 5 MG/ML AMP IM PRN (17:18)
[2022-01-18] MEDS ORDERED: WARFARIN 2.5 MG TABLET PO SCH (18:00)
[2022-01-18] MEDS: SIMVASTATIN 10 MG TABLET PO SCH (20:57)
[2022-01-19] MEDS: IPRATROPIUM 500 MCG/2.5 ML NEB RESP TX SCH ×2 (00:05→07:09)
[2022-01-19] MEDS: LEVALBUTEROL 1.25 MG/3 ML NEB RESP TX SCH ×2 (00:05→07:09)
[2022-01-19] MEDS: AZITHROMYCIN INJ 500 MG in SODIUM CHLORIDE 0.9% 250 ML IV SCH (00:38)
[2022-01-19] MEDS: INSULIN REGULAR 100 UNIT/ML SUBCUT SCH ×4 (00:38→18:28)
[2022-01-19] MEDS: PIPERACILLIN/TAZOBACTAM 3,375 MG in SODIUM CHLORIDE 0.9% 100 ML IV SCH ×3 (01:45→18:29)
[2022-01-19] MEDS: methylPREDNISolone SOD SUC 40 MG/1 ML VIAL IV SCH ×3 (01:45→18:29)
[2022-01-19] MEDS: DILTIAZEM INJ 100 MG in SODIUM CHLORIDE 0.9% 100 ML IV SCH ×2 (05:37→19:25)
[2022-01-19 06:04] LABS: Basophils % 0.1 % (0.0-0.8); Hematocrit 37.2 VOL% (35.7-47.0); Hemoglobin 11.7 GM/DL (12.0-16.0); Immature Granulocytes % 0.7 %; Immature Granulocytes Absolute 0.16 #; Lymphocytes # 0.9 10*3/uL (1.4-4.0); Mean Corpuscular HGB Conc 31.5 GM/DL (32-36); Mean Corpuscular Volume 97.4 FL (87-102); Mean Platelet Volume 10.6 FL (9.6-12.0); Monocytes # 0.9 10*3/uL (0.11-0.8); Monocytes % 4.2 % (1.7-12.7); Platelet Count 248 T/CUMM (130-400); Red Blood Count 3.82 MC/CUMM (3.8-5.5); Red Cell Distribution Width 14.6 % (9.3-17.3); White Blood Count 21.5 T/CUMM (4-12)
[2022-01-19 06:06] LABS: INR 1.6; PT Patient Result 16.8 SECS (10.1-12.1)
[2022-01-19 06:25] LABS: Potassium 4.1 MMOL/L (3.5-5.1)
[2022-01-19 06:31] LABS: Band Neutrophils 2 % (0-10); Lymphocytes 2 % (20-55); Total Cells Counted 100
[2022-01-19 06:34] LABS: Free T4 (Free Thyroxine) 1.36 NG/DL (0.76-1.46); Thyroid Stimulating Hormone 1.47 uIU/ml (0.358-3.74)
[2022-01-19 07:59] LABS: Arterial Base Excess iSTAT 9 MMOL/L (-2.5-2.5); Arterial Bicarbonate iSTAT 33.5 MMOL/L (20-26); Arterial O2 Saturation iSTAT 100 % (95-100); Arterial PCO2 iSTAT 46 MM HG (35-48); Arterial PO2 iSTAT 206 MM HG (80-95); Arterial Total CO2 iSTAT 35 MMO/L (23-27); Arterial pH iSTAT 7.467 (7.35-7.45)
[2022-01-19] MEDS: ENOXAPARIN 80 MG/0.8 ML SYRINGE SUBCUT SCH ×2 (09:19→21:32)
[2022-01-19] MEDS: DIGOXIN 0.125 MG TABLET PO SCH (09:19)
[2022-01-19] MEDS: ASPIRIN 325 MG TABLET PO SCH (09:19)
[2022-01-19] MEDS: atenoloL 50 MG TABLET PO SCH ×2 (09:19→21:33)
[2022-01-19] MEDS: PANTOPRAZOLE 40 MG VIAL IV SCH (09:20)
[2022-01-19] MEDS: LINEZOLID INJ 600 MG/300 ML PREMIX IV SCH ×2 (09:21→21:32)
[2022-01-19] MEDS ORDERED: FUROSEMIDE 40 MG/4 ML VIAL IV ONE ×2 (09:39→10:19)
[2022-01-19] MEDS: ALBUTEROL/IPRATROPIUM 3 ML NEB RESP TX SCH ×3 (11:09→19:46)
[2022-01-19] MEDS: SIMVASTATIN 10 MG TABLET PO SCH (21:32)
[2022-01-19] MEDS: MENTHOL/ZINC OXIDE OINT 71 GM JAR TOP SCH (21:32)
[2022-01-20] MEDS: AZITHROMYCIN INJ 500 MG in SODIUM CHLORIDE 0.9% 250 ML IV SCH (00:50)
[2022-01-20] MEDS: INSULIN REGULAR 100 UNIT/ML SUBCUT SCH ×4 (00:50→18:49)
[2022-01-20] MEDS: PIPERACILLIN/TAZOBACTAM 3,375 MG in SODIUM CHLORIDE 0.9% 100 ML IV SCH (02:50)
[2022-01-20] MEDS: methylPREDNISolone SOD SUC 40 MG/1 ML VIAL IV SCH ×3 (02:50→18:50)
[2022-01-20] MEDS: ALBUTEROL/IPRATROPIUM 3 ML NEB RESP TX SCH ×6 (03:00→19:25)
[2022-01-20] MEDS: DILTIAZEM INJ 100 MG in SODIUM CHLORIDE 0.9% 100 ML IV SCH (03:17)
[2022-01-20 04:58] LABS: Arterial Base Excess iSTAT 9 MMOL/L (-2.5-2.5); Arterial Bicarbonate iSTAT 33.2 MMOL/L (20-26); Arterial O2 Saturation iSTAT 98 % (95-100); Arterial PCO2 iSTAT 44 MM HG (35-48); Arterial PO2 iSTAT 101 MM HG (80-95); Arterial Total CO2 iSTAT 34 MMO/L (23-27)
[2022-01-20 05:28] LABS: Basophils % 0.1 % (0.0-0.8); Hematocrit 35.5 VOL% (35.7-47.0); Hemoglobin 11.3 GM/DL (12.0-16.0); Immature Granulocytes % 0.6 %; Lymphocytes # 0.9 10*3/uL (1.4-4.0); Lymphocytes % 5.5 % (21.3-54.2); Mean Corpuscular HGB Conc 31.8 GM/DL (32-36); Mean Corpuscular Volume 95.9 FL (87-102); Mean Platelet Volume 10.3 FL (9.6-12.0); Monocytes # 0.7 10*3/uL (0.11-0.8); Neutrophils % 89.8 % (38.7-73.9); Platelet Count 223 T/CUMM (130-400); Red Cell Distribution Width 14.6 % (9.3-17.3); White Blood Count 16.7 T/CUMM (4-12)
[2022-01-20 05:47] LABS: Calcium 8.8 MG/DL (8.5-10.1); Osmolality,Calculated 300.7 MOS/KG (273-304); Potassium 3.8 MMOL/L (3.5-5.1)
[2022-01-20 05:55] LABS: INR 1.2; PT Patient Result 13.5 SECS (10.1-12.1)
[2022-01-20] MEDS: MENTHOL/ZINC OXIDE OINT 71 GM JAR TOP SCH ×2 (09:33→21:28)
[2022-01-20] MEDS: POTASSIUM CHLORIDE 20 MEQ TABLET PO SCH ×2 (09:33→14:12)
[2022-01-20] MEDS: ASPIRIN 325 MG TABLET PO SCH (09:33)
[2022-01-20] MEDS: DILTIAZEM 30 MG TABLET PO SCH ×4 (09:33→21:29)
[2022-01-20] MEDS: DIGOXIN 0.125 MG TABLET PO SCH (09:33)
[2022-01-20] MEDS: FUROSEMIDE 40 MG/4 ML VIAL IV SCH (09:34)
[2022-01-20] MEDS: ENOXAPARIN 80 MG/0.8 ML SYRINGE SUBCUT SCH ×2 (09:34→21:28)
[2022-01-20] MEDS: PANTOPRAZOLE 40 MG VIAL IV SCH (09:34)
[2022-01-20] MEDS: LINEZOLID INJ 600 MG/300 ML PREMIX IV SCH ×2 (09:34→21:29)
[2022-01-20] MEDS: cefTRIAXone 1,000 MG in SODIUM CHLORIDE 0.9% 100 ML IV SCH (09:34)
[2022-01-20] MEDS: atenoloL 50 MG TABLET PO SCH ×2 (09:34→21:29)
[2022-01-20] MEDS: SIMVASTATIN 10 MG TABLET PO SCH (21:28)
[2022-01-21] MEDS: INSULIN REGULAR 100 UNIT/ML SUBCUT SCH ×4 (00:19→18:07)
[2022-01-21] MEDS: ALBUTEROL/IPRATROPIUM 3 ML NEB RESP TX SCH ×7 (00:29→23:00)
[2022-01-21] MEDS: DILTIAZEM INJ 100 MG in SODIUM CHLORIDE 0.9% 100 ML IV SCH (01:44)
[2022-01-21] MEDS: AZITHROMYCIN INJ 500 MG in SODIUM CHLORIDE 0.9% 250 ML IV SCH (01:54)
[2022-01-21] MEDS: methylPREDNISolone SOD SUC 40 MG/1 ML VIAL IV SCH ×3 (01:55→18:08)
[2022-01-21 04:57] LABS: Arterial Base Excess iSTAT 15 MMOL/L (-2.5-2.5); Arterial Bicarbonate iSTAT 38.5 MMOL/L (20-26); Arterial O2 Saturation iSTAT 95 % (95-100); Arterial PCO2 iSTAT 44 MM HG (35-48); Arterial PO2 iSTAT 67 MM HG (80-95); Arterial Total CO2 iSTAT 40 MMO/L (23-27); Arterial pH iSTAT 7.553 (7.35-7.45)
[2022-01-21 05:40] LABS: Basophils % 0.1 % (0.0-0.8); Hematocrit 36.1 VOL% (35.7-47.0); Hemoglobin 11.5 GM/DL (12.0-16.0); Immature Granulocytes % 1.8 %; Immature Granulocytes Absolute 0.28 #; Lymphocytes % 6.5 % (21.3-54.2); Mean Corpuscular HGB Conc 31.9 GM/DL (32-36); Mean Corpuscular Volume 94.5 FL (87-102); Mean Platelet Volume 10.5 FL (9.6-12.0); Monocytes # 0.6 10*3/uL (0.11-0.8); Monocytes % 3.9 % (1.7-12.7); Neutrophils % 87.7 % (38.7-73.9); Platelet Count 241 T/CUMM (130-400); Red Blood Count 3.82 MC/CUMM (3.8-5.5); Red Cell Distribution Width 14.3 % (9.3-17.3)
[2022-01-21 05:55] LABS: Calcium 9.1 MG/DL (8.5-10.1); Potassium 3.8 MMOL/L (3.5-5.1)
[2022-01-21] MEDS: ASPIRIN 325 MG TABLET PO SCH (09:25)
[2022-01-21] MEDS: ENOXAPARIN 80 MG/0.8 ML SYRINGE SUBCUT SCH ×2 (09:25→20:34)
[2022-01-21] MEDS: DILTIAZEM 60 MG TABLET PO SCH ×3 (09:25→20:34)
[2022-01-21] MEDS: DIGOXIN 0.125 MG TABLET PO SCH (09:26)
[2022-01-21] MEDS: MENTHOL/ZINC OXIDE OINT 71 GM JAR TOP SCH ×2 (09:26→20:34)
[2022-01-21] MEDS: atenoloL 50 MG TABLET PO SCH ×2 (09:26→20:33)
[2022-01-21] MEDS: FUROSEMIDE 40 MG/4 ML VIAL IV SCH (09:28)
[2022-01-21] MEDS: PANTOPRAZOLE 40 MG VIAL IV SCH (09:32)
[2022-01-21] MEDS: cefTRIAXone 1,000 MG in SODIUM CHLORIDE 0.9% 100 ML IV SCH (09:42)
[2022-01-21] MEDS: LINEZOLID INJ 600 MG/300 ML PREMIX IV SCH ×2 (09:44→23:01)
[2022-01-21] MEDS: WARFARIN 2.5 MG TABLET PO SCH (18:07)
[2022-01-21] MEDS: SIMVASTATIN 10 MG TABLET PO SCH (20:34)
[2022-01-22] MEDS: methylPREDNISolone SOD SUC 40 MG/1 ML VIAL IV SCH ×3 (01:08→18:21)
[2022-01-22] MEDS: INSULIN REGULAR 100 UNIT/ML SUBCUT SCH ×4 (01:08→18:23)
[2022-01-22] MEDS: DILTIAZEM INJ 100 MG in SODIUM CHLORIDE 0.9% 100 ML IV SCH (01:52)
[2022-01-22] MEDS: ALBUTEROL/IPRATROPIUM 3 ML NEB RESP TX SCH ×6 (03:30→23:51)
[2022-01-22 04:00] LABS: Basophils % 0.1 % (0.0-0.8); Hematocrit 33.1 VOL% (35.7-47.0); Hemoglobin 10.7 GM/DL (12.0-16.0); Immature Granulocytes % 2.8 %; Immature Granulocytes Absolute 0.27 #; Mean Corpuscular HGB Conc 32.3 GM/DL (32-36); Mean Corpuscular Volume 95.4 FL (87-102); Mean Platelet Volume 10.3 FL (9.6-12.0); Monocytes # 0.5 10*3/uL (0.11-0.8); Monocytes % 5.2 % (1.7-12.7); NRBC # 0.02 10*3/uL; Neutrophils % 81.9 % (38.7-73.9); Platelet Count 221 T/CUMM (130-400); Red Blood Count 3.47 MC/CUMM (3.8-5.5); Red Cell Distribution Width 14.2 % (9.3-17.3); White Blood Count 9.7 T/CUMM (4-12)
[2022-01-22 04:08] LABS: INR 1.1; PT Patient Result 12.4 SECS (10.1-12.1)
[2022-01-22 04:08] LABS: ABG Base Excess 11.6 MMOL/L (-2.5-2.5); ABG HCO3 35.4 MMOL/L (20-26); ABG PCO2 44.8 MM HG (35-48); ABG PH 7.514 (7.35-7.45); ABG TCO2 32.1 MMOL/L (23-27)
[2022-01-22 04:27] LABS: Calcium 8.6 MG/DL (8.5-10.1); Osmolality,Calculated 300.4 MOS/KG (273-304); Potassium 2.9 MMOL/L (3.5-5.1)
[2022-01-22] MEDS: POTASSIUM CHLORIDE RIDER 10 MEQ/100 ML PREMIX IV PRN ×2 (05:15→06:09)
[2022-01-22] MEDS ORDERED: POTASSIUM CHLORIDE 20 MEQ TABLET PO SCH (08:00)
[2022-01-22] MEDS: DIGOXIN 0.125 MG TABLET PO SCH (09:57)
[2022-01-22] MEDS: ASPIRIN 325 MG TABLET PO SCH (09:57)
[2022-01-22] MEDS: atenoloL 50 MG TABLET PO SCH ×2 (09:58→21:12)
[2022-01-22] MEDS: MENTHOL/ZINC OXIDE OINT 71 GM JAR TOP SCH ×2 (09:58→21:13)
[2022-01-22] MEDS: DILTIAZEM 90 MG TABLET PO SCH ×3 (09:58→21:12)
[2022-01-22] MEDS: ENOXAPARIN 80 MG/0.8 ML SYRINGE SUBCUT SCH ×2 (09:58→21:12)
[2022-01-22] MEDS: PANTOPRAZOLE 40 MG VIAL IV SCH (09:59)
[2022-01-22] MEDS: cefTRIAXone 1,000 MG in SODIUM CHLORIDE 0.9% 100 ML IV SCH (10:03)
[2022-01-22] MEDS: LINEZOLID INJ 600 MG/300 ML PREMIX IV SCH ×2 (10:05→21:13)
[2022-01-22] MEDS: POTASSIUM BICARB EFFERVESCENT 20 MEQ TAB.EFF PO SCH ×2 (14:25→18:24)
[2022-01-22] MEDS: FUROSEMIDE 40 MG/4 ML VIAL IV SCH (16:01)
[2022-01-22] MEDS: WARFARIN 2.5 MG TABLET PO SCH (18:23)
[2022-01-22] MEDS: SIMVASTATIN 10 MG TABLET PO SCH (21:12)
[2022-01-23] MEDS: INSULIN REGULAR 100 UNIT/ML SUBCUT SCH ×3 (00:32→12:03)
[2022-01-23] MEDS: methylPREDNISolone SOD SUC 40 MG/1 ML VIAL IV SCH (01:01)
[2022-01-23] MEDS: DILTIAZEM INJ 100 MG in SODIUM CHLORIDE 0.9% 100 ML IV SCH (02:28)
[2022-01-23] MEDS: ALBUTEROL/IPRATROPIUM 3 ML NEB RESP TX SCH ×3 (03:32→11:22)
[2022-01-23 04:15] LABS: Basophils % 0.2 % (0.0-0.8); Hematocrit 35.7 VOL% (35.7-47.0); Hemoglobin 11.4 GM/DL (12.0-16.0); Immature Granulocytes % 2.2 %; Immature Granulocytes Absolute 0.23 #; Lymphocytes # 0.8 10*3/uL (1.4-4.0); Lymphocytes % 7.8 % (21.3-54.2); Mean Corpuscular HGB Conc 31.9 GM/DL (32-36); Mean Corpuscular Volume 95.5 FL (87-102); Mean Platelet Volume 10.2 FL (9.6-12.0); Monocytes # 0.5 10*3/uL (0.11-0.8); NRBC # 0.04 10*3/uL; Neutrophils % 84.8 % (38.7-73.9); Platelet Count 239 T/CUMM (130-400); Red Blood Count 3.74 MC/CUMM (3.8-5.5); Red Cell Distribution Width 14.3 % (9.3-17.3); White Blood Count 10.4 T/CUMM (4-12)
[2022-01-23 04:16] LABS: Arterial Base Excess iSTAT 17 MMOL/L (-2.5-2.5); Arterial O2 Saturation iSTAT 99 % (95-100); Arterial PCO2 iSTAT 49 MM HG (35-48); Arterial PO2 iSTAT 111 MM HG (80-95); Arterial Total CO2 iSTAT 43 MMO/L (23-27); Arterial pH iSTAT 7.544 (7.35-7.45)
[2022-01-23 04:26] LABS: Calcium 8.8 MG/DL (8.5-10.1); Osmolality,Calculated 300.7 MOS/KG (273-304); Potassium 3.4 MMOL/L (3.5-5.1)
[2022-01-23 04:29] LABS: INR 1.4; PT Patient Result 14.9 SECS (10.1-12.1)
[2022-01-23] MEDS: POTASSIUM CHLORIDE RIDER 10 MEQ/100 ML PREMIX IV PRN ×3 (05:18→07:21)
[2022-01-23] MEDS: ENOXAPARIN 80 MG/0.8 ML SYRINGE SUBCUT SCH (08:26)
[2022-01-23] MEDS: POTASSIUM CHLORIDE 20 MEQ TABLET PO SCH ×2 (08:26→11:42)
[2022-01-23] MEDS: FUROSEMIDE 40 MG/4 ML VIAL IV SCH (08:26)
[2022-01-23] MEDS: ASPIRIN 325 MG TABLET PO SCH (08:27)
[2022-01-23] MEDS: DILTIAZEM 90 MG TABLET PO SCH ×3 (08:27→12:01)
[2022-01-23] MEDS: cefTRIAXone 1,000 MG in SODIUM CHLORIDE 0.9% 100 ML IV SCH (08:28)
[2022-01-23] MEDS: DIGOXIN 0.125 MG TABLET PO SCH (08:28)
[2022-01-23] MEDS: atenoloL 50 MG TABLET PO SCH (08:28)
[2022-01-23] MEDS: MENTHOL/ZINC OXIDE OINT 71 GM JAR TOP SCH (08:28)
[2022-01-23] MEDS: PANTOPRAZOLE 40 MG VIAL IV SCH (10:22)
[2022-01-23] MEDS: LINEZOLID INJ 600 MG/300 ML PREMIX IV SCH (10:24)
[2022-01-23] MEDS ORDERED: methylPREDNISolone SOD SUC 40 MG/1 ML VIAL IV SCH (14:00)
== END 2022-01-23 12:30 | DRG 689 ==
LOC: N.EDINP 15:47 → N.ED 15:47 → N.5E 20:11 → SUATTDRO 01-14 14:16 → N.ICU 01-17 01:57 → N.CC 01-21 11:11
PROVIDERS: ADMIT Hospitalist; ATTEND Internal Medicine